=== PATIENT | male | born 2000 | race Hispanic/Latino ===

== ENCOUNTER 2021-08-01 22:36 | Emergency (ER) | payer SELFPAY ==
[~2021-08-01] VITALS: Ht 165.1 cm; Wt 61.2 kg
[2021-08-01] MEDS ORDERED: FAMC500T8 PO (23:03)
[2021-08-01 23:27] VITALS: BP 125/72
== END 2021-08-01 23:22 | disposition home or self-care (01) ==
LOC: EDH 22:36
DX: B00.9 Herpesviral infection, unspecified (principal); Z79.899 Other long term (current) drug therapy